=== PATIENT | female | born 1960 | race Caucasian/White ===

== ENCOUNTER → 2022-03-09 14:37 | Outpatient (CLI) | payer OTHER, SELFPAY ==
--- NOTE | ~2022-03-09 | CT_ITS ---
EXAMINATION: CT diagnostic chest w con DATE: 03/09/2022 15:10 INDICATION: Jugular venous distention TECHNIQUE: Computed tomography (CT) of the chest was performed with 75 CC Omnipaque 350 intravenous c ontrast. Automated exposure control and iterative reconstruction technique were employed. Exam dose: 309.52 mGy-cm total exam DLP. COMPARISON: None FINDINGS: Cardiomegaly. No thoracic aortic aneurysm or dissection. No hilar or mediastinal mass lesio n or lymphadenopathy. Calcified azygos node and calcified middle lobe pulmonary granuloma, consistent with old granulomatou s disease. No pulmonary infiltrate or consolidation or pulmonary mass lesion. Moderately large sliding hiatal hernia. Probable approximately 12 mm upper pole left renal cyst. Normal morphology of the adrenal glands. No suspicious osteolytic or osteoblastic lesions. Degenerative spurring of the thoracic spine. IMPRESSION: Cardiomegaly; no congestive changes noted Moderately large sliding hiatal hernia Old granulomatous disease Reviewed, dictated and finalized at [facility]. Reviewed, dictated and finalized at [facility].
[2022-03-09 14:59] LABS: Estimated Glomerular Filt Rate > 60
== END ==
PROVIDERS: PCP Pediatrics; Visit Provider Pediatrics
DX: R09.89 Other specified symptoms and signs involving the circulatory and respiratory systems (principal); H11.30 Conjunctival hemorrhage, unspecified eye; I51.7 Cardiomegaly; K44.9 Diaphragmatic hernia without obstruction or gangrene
CPT/HCPCS: 71260; Q9967